=== PATIENT | female | born 1985 | race Caucasian/White ===

== ENCOUNTER → 2020-03-01 | Outpatient (REF) | payer OTHER | LOC: M LAB REF 15:11 | PROVIDERS: ATTEND Nurse Practitioner Family | DX: N39.0 Urinary tract infection, site not specified (principal) ==

== ENCOUNTER → 2020-10-19 | Outpatient (CLI) | payer OTHER ==
[~2020-10-19] MED LIST: ISOVUE-370 76% 100ML VIAL As Ordered ONE; PRENTAB53 PO
== END ==
LOC: M RADPRO 11:40
PROVIDERS: ATTEND Obstetrics & Gynecology
DX: N97.9 Female infertility, unspecified (principal)
CPT/HCPCS: 58340; 74740; Q9967

== ENCOUNTER 2020-11-24 07:24 | Day surgery (SDC) | payer OTHER ==
[~2020-11-24] VITALS: Ht 175.3 cm; Wt 68.0 kg
[~2020-11-24 07:24] MED LIST changes: +ACETAMINOPHEN *IV* 1,000 MG IV ONE; -ISOVUE-370 76% 100ML VIAL As Ordered ONE; +LIDOCAINE 1% MDV 20ML VIAL SQ PRN; +LR 1,000 ML IV ONE
[2020-11-24 08:09] LABS: HEMATOCRIT 39.3 % (36.0-47.0); HEMOGLOBIN 12.9 g/dl (12.0-15.5); MEAN CORPUSCULAR HEMOGLOBIN 27.7 pg (27.0-33.0); MEAN CORPUSCULAR HGB CONC 32.8 g/dl (32.0-36.5); MEAN CORPUSCULAR VOLUME 84.3 fl (80.0-96.0); PLATELET COUNT, AUTOMATED 336 10^3/uL (150-450); RED BLOOD COUNT 4.66 10^6/uL (4.00-5.40); WHITE BLOOD COUNT 6.1 10^3/uL (4.0-10.0)
[2020-11-24] MEDS ORDERED: propofoL 200 MG/20 ML VIAL As Ordered ONE (08:49)
[2020-11-24] MEDS ORDERED: LIDOCAINE 2% 100MG/5ML SDV (FOR ANES.) As Ordered ONE (08:49)
[2020-11-24] MEDS ORDERED: MIDAZOLAM INJ 2MG/2ML VIAL (J2250 PER 1MG) As Ordered ONE (08:49)
[2020-11-24] MEDS ORDERED: fentaNYL 100 MCG/2 ML INJECTION (J3010) As Ordered ONE (08:50)
[2020-11-24] MEDS ORDERED: LIDOCAINE 1% SDV 30ML VIAL As Ordered ONE (08:51)
[2020-11-24 08:54] LABS: BLOOD UREA NITROGEN 10 MG/DL (7-18); CALCIUM LEVEL 9.2 MG/DL (8.5-10.1); CARBON DIOXIDE LEVEL 27 MEQ/L (21-32); CHLORIDE LEVEL 109 MEQ/L (98-107); CREATININE FOR GFR 0.76 MG/DL (0.55-1.30); GLOMERULAR FILTRATION RATE > 60.0 (>60); GLUCOSE, FASTING 94 MG/DL (70-100); POTASSIUM SERUM 4.5 MEQ/L (3.5-5.1); SODIUM LEVEL 140 MEQ/L (136-145)
[2020-11-24 09:02] LABS: HCG, SERUM QUALITATIVE NEGATIVE (NEGATIVE)
[2020-11-24] MEDS: SILVER NITRATE APPLICATOR As Ordered ONE ×2 (09:20→09:50)
[2020-11-24] MEDS ORDERED: METOCLOPRAMIDE INJ 10MG/2ML VIAL (J2765 PER 1) As Ordered ONE (09:26)
[2020-11-24] MEDS ORDERED: ONDANSETRON 4MG/2ML VIAL As Ordered ONE (09:26)
[2020-11-24] MEDS ORDERED: KETOROLAC 60MG 2ML VIAL As Ordered ONE (09:26)
[2020-11-24] MEDS ORDERED: dexameTHASONE 4 MG/ML 1ML VIAL (J1100 PER 1MG) As Ordered ONE (09:26)
[2020-11-24] MEDS ORDERED: ACETAMINOPHEN 1000MG 100ML IV BTL (OFIRMEV) (J0131 PER 10MG) As Ordered ONE (09:27)
[2020-11-24] MEDS ORDERED: SILVER NITRATE APPLICATOR As Ordered ONE (10:16)
[2020-11-24] MEDS ORDERED: HYDROMORPHONE HCL 0.5 MG/ 0.5 ML SYRINGE (J1170 PER 1) IV PRN (10:25)
[2020-11-24] MEDS ORDERED: LR 1,000 ML IV SCH (10:25)
[2020-11-24] MEDS ORDERED: fentaNYL 100 MCG/2 ML INJECTION (J3010) IV PRN (10:25)
[2020-11-24] MEDS ORDERED: ONDANSETRON 4MG/2ML VIAL IV PRN (10:25)
[2020-11-24] MEDS ORDERED: oxyCODONE 5MG TAB PO PRN (10:25)
[2020-11-24 11:20] VITALS: BP 129/86
--- NOTE | 2020-11-24 12:33 | ROOPDOC ---
[facility] Report Of Operation Report of Operation DATE OF PROCEDURE: 11/24/20 PREPROCEDURE DIAGNOSES: Infertility, endometrial polyp POSTPROCEDURE DIAGNOSES: same as above PROCEDURE PERFORMED: Hysteroscopic polypectomy with myosure SURGEON: Kaya Hawkins MD PROCUREMENT COST COORDINATOR: none ANESTHESIA: general ESTIMATED BLOOD LOSS: Approximately 5 mL. COMPLICATIONS: none FINDINGS: Fundal endometrial polyp. removed with myosure devive. normal uterine cavity and bilateral ostia after procedure. EBL 5ml, IVF 1L, Defeceit 435ml. SPECIMENS REMOVED: endomtrial polyp The patient was taken to the operating room where anesthesia was found to be adequate. She was then placed in the high lithotomy position with the candy cane stirrups. The patient was then prepped and draped in the usual sterile fashion. An operative bivalve sterile speculum was placed in the vagina, and the anterior lip of the cervix was grasped with a single-tooth tenaculum. The cervix was sequentially dilated using Jorge dilators up to 18French. A 7 mm myosure hysteroscope with normal saline distention medium was inserted into the cervix. Upon entrance into the cervical canal, an endometrial polyp with a fundal attachment was visualized then the myosure device was inserted into the uterine cavity and the polyp was shaved off to the level of the surrounding endometrium. normal vacity and bilateral ostia noted at the end of the case. the myosure device was then removed and the the tenaculum release from the anterior cervical lip. The tenaculum sites were hemostatic after pressure held with a sponge stick and silver nitrate application. The operative sterile speculum was then removed from the vagina. The patient was returned to the supine position, extubated without difficulty, and then taken to the recovery room in stable condition. Sponge, lap, and needle counts were correct x2. WARD HOWARD MD Nov 24, 2020 12:33
== END 2020-11-24 11:25 | disposition home or self-care (01) ==
LOC: M SDC 07:24
PROVIDERS: ATTEND Obstetrics & Gynecology
DX: N84.0 Polyp of corpus uteri (principal); N97.9 Female infertility, unspecified; D25.9 Leiomyoma of uterus, unspecified
CPT/HCPCS: 36415; 58558; 80048; 84703; 85027; 86850; 86900; 86901; 88305; J0131; J1100; J1885; J2250; J2405; J2765; J3010

== ENCOUNTER → 2022-01-08 | Outpatient (REF) | payer OTHER ==
[~2022-01-08] MED LIST changes: -ACETAMINOPHEN *IV* 1,000 MG IV ONE; -LIDOCAINE 1% MDV 20ML VIAL SQ PRN; -LR 1,000 ML IV ONE
== END ==
LOC: M LAB REF 18:46
PROVIDERS: ATTEND Physician Assistant
DX: R30.0 Dysuria (principal)

== ENCOUNTER → 2022-06-16 | Outpatient (CLI) | payer OTHER ==
[2022-06-16 07:33] LABS: BASO # 0.1 10^3/uL (0.0-0.2); BASO % 1.1 % (0.0-1.0); EOS # 0.4 10^3/uL (0.0-0.5); EOS % 6.1 % (0.0-3.0); HEMATOCRIT 37.4 % (36.0-47.0); HEMOGLOBIN 12.4 g/dl (12.0-15.5); LYMPH # 2.4 10^3/uL (1.5-5.0); LYMPH % 38.4 % (24.0-44.0); MEAN CORPUSCULAR HGB CONC 33.2 g/dl (32.0-36.5); MEAN CORPUSCULAR VOLUME 81.5 fl (80.0-96.0); MONO # 0.5 10^3/uL (0.0-0.8); MONO % 8.6 % (2.0-8.0); NEUTROPHILS # 2.9 10^3/uL (1.5-8.5); NEUTROPHILS % 45.6 % (36.0-66.0); PLATELET COUNT, AUTOMATED 383 10^3/uL (150-450); RED BLOOD COUNT 4.59 10^6/uL (4.00-5.40); WHITE BLOOD COUNT 6.3 10^3/uL (4.0-10.0)
[2022-06-16 07:53] LABS: ALBUMIN 4.1 G/DL (3.2-5.2); ALKALINE PHOSPHATASE 76 U/L (46-116); ALT/SGPT 15 U/L (7.0-40); AST/SGOT < 8 U/L (<34); BILIRUBIN,TOTAL 0.5 MG/DL (0.3-1.2); BLOOD UREA NITROGEN 15 MG/DL (9-23); CALCIUM LEVEL 9.2 MG/DL (8.5-10.1); CARBON DIOXIDE LEVEL 25 MMOL/L (20-31); CHLORIDE LEVEL 107 MMOL/L (98-107); CHOLESTEROL LEVEL 207 MG/DL (<200); CHOLESTEROL RISK RATIO 2.23 (<5); CREATININE FOR GFR 0.84 MG/DL (0.55-1.30); GLOMERULAR FILTRATION RATE > 60.0 (>60); GLUCOSE, FASTING 84 MG/DL (60-100); HDL CHOLESTEROL 92.6 MG/DL (>40); LDL CHOLESTEROL 103.2 MG/DL (<100); NON-HDL-C 114.4 MG/DL; POTASSIUM SERUM 4.4 MMOL/L (3.5-5.1); SODIUM LEVEL 138 MMOL/L (136-145); TRIGLYCERIDES LEVEL 56 MG/DL (<150)
[2022-06-16 07:57] LABS: FREE T4 0.92 NG/DL (0.89-1.76); THYROID STIMULATING HORMONE 2.536 uIU/ML (0.55-4.78)
== END ==
LOC: M LAB 06:29
PROVIDERS: ATTEND Registered Nurse
DX: Z00.00 Encounter for general adult medical examination without abnormal findings (principal)

== ENCOUNTER → 2022-07-07 | Outpatient (REF) | payer OTHER | LOC: M LAB REF 08:25 | PROVIDERS: ATTEND Registered Nurse | DX: Z12.4 Encounter for screening for malignant neoplasm of cervix (principal) | CPT/HCPCS: 87624; G0123 ==

== ENCOUNTER → 2022-10-24 | Outpatient (CLI) | payer OTHER | LOC: M PLALAB 14:03 | PROVIDERS: ATTEND Advanced Practice Midwife | DX: N92.0 Excessive and frequent menstruation with regular cycle (principal) ==

== ENCOUNTER → 2022-10-27 | Outpatient (CLI) | payer OTHER | LOC: M WHC 13:31 | PROVIDERS: ATTEND Advanced Practice Midwife | DX: N92.0 Excessive and frequent menstruation with regular cycle (principal) ==